=== PATIENT | male | born 1985 | race Caucasian/White ===

== ENCOUNTER 2016-06-22 18:44 | Emergency (ER) | payer OTHER ==
[~2016-06-22] VITALS: Ht 152.4 cm; Wt 51.6 kg
[2016-06-22 19:33] LABS: HEMATOCRIT 41.7 % (38.0-50.0); MCH 31.2 PG (29.0-34.0); MCHC 36.2 G/DL (30.0-36.0); MCV 86.2 FL (86-99); MEAN PLAT.VOLUME 9.3 uM^3 (9.0-12.4); PLATELET COUNT 284 K/uL (156-360); RBC DIS.WIDTH-CV 12.2 % (11.8-14.6); RBC DIS.WIDTH-SD 37.7 % (39-53); RED BLOOD COUNT 4.84 M/uL (4.00-5.50); WHITE BLOOD COUNT 10.4 K/uL (4.1-10.2)
[2016-06-22 20:12] LABS: CHLORIDE 106 mEq/L (99-109); POTASSIUM 4.1 mEq/L (3.7-5.4); SODIUM 140 mEq/L (136-147)
[2016-06-22 20:14] LABS: GLUCOSE 78 mg/dL (70-99)
[2016-06-22 20:15] LABS: ANION GAP 10 MEQ/L (2-14)
[2016-06-22 20:15] LABS: ADD MIUA? NO; BILIRUBIN NEGATIVE; BLOOD NEGATIVE; COLOR YELLOW ((YELLOW)); GLUCOSE (STRIP) NEGATIVE; KETONES NEGATIVE; LEUKOCYTES NEGATIVE; NITRITE NEGATIVE; PROTEIN (STRIP) NEGATIVE; SPECIFIC GRAVITY 1.015 (1.000-1.030); UCUL ADDED? NO; UROBILINOGEN 0.2 MG/DL (0.2-1.0)
[2016-06-22 20:19] LABS: GFR ESTIMATE (CALCULATED) > 59 mL/min/; UREA NITROGEN (BUN) 9 mg/dL (9-23)
[2016-06-22] MEDS ORDERED: PRILOSEC20 MG PO (21:58)
[2016-06-22] MEDS ORDERED: ZANTAC300 MG PO (21:58)
[2016-06-22] MEDS ORDERED: VIBRAMYCIN100 MG PO (23:01)
[2016-06-22 23:57] VITALS: BP 112/55
== END 2016-06-23 00:17 | disposition home or self-care (01) ==
LOC: EXP 18:44 → EME 18:44 → EXP 06-23 00:17
DX: R10.84 Generalized abdominal pain (principal); N30.90 Cystitis, unspecified without hematuria; Z87.19 Personal history of other diseases of the digestive system; F17.200 Nicotine dependence, unspecified, uncomplicated
CPT/HCPCS: 74176; 80048; 81003; 85027; 99281; 99284; J3010